=== PATIENT | female | born 1960 | race Caucasian/White ===

== ENCOUNTER 2019-11-07 09:42 | Emergency (ER) | payer OTHER, SELFPAY ==
--- NOTE | ~2019-11-07 | XR_ITS ---
XR wrist RT min 3V, XR wrist LT min 3V 11/07/2019 10:24 (accession [id number]), 11/07/2019 10:23 (accession [id number]) Indication: Status post fall. Bilateral wrist pain. Procedure: 4 views each wrist Comparison: No prior studies for comparison. Findings: No fracture, subluxation or dislocation. No erosive changes. Mild degenerative changes of t he right triscaphe joint. No focal soft tissue abnormality. Impression: 1: No acute fracture. Reviewed, dictated and finalized at location A. Impression: 1: No acute fracture. Impression: 1: No acute fracture.
--- NOTE | 2019-11-07 09:52 | ED.GENADULT ---
HPI - General Adult General Chief complaint: Extremity Injury, Upper Stated complaint: wrist injury Time Seen by Provider: 11/07/19 10:01 Source: patient Mode of arrival: ambulatory Limitations: no limitations History of Present Illness HPI narrative: 59-year-old female patient presents to the [facility] with complaints of bilateral wrist pain. Patient states that she was playing with a ball with her children about a week ago and states that she tripped and fell forward using both of her hands to catch her fall. Patient states that she landed onto concrete. Denies any loss of consciousness or hitting her head. Patient states that they were swollen and bruised however the bruising has gone down as well as the swelling but continues to have some pain on both sides of the wrist more so on the left than the right. Patient states that the pain on the left does radiate up to the wrist area as well on the right side. Patient denies taking anything for the pain. Patient denies any numbness or tingling. Related Data Home Medications Medication Instructions Recorded Confirmed No Home Medications 11/07/19 11/07/19 Allergies Allergy/AdvReac Type Severity Reaction Status Date / Time No Known Allergies Allergy Verified 11/07/19 10:10 Review of Systems Review of Systems: Narrative: CONSTITUTIONAL: Denies fever, chills, or sweats. EYES: Denies visual changes, redness, or discharge. ENT: Denies rhinorrhea, congestion, sore throat, or otalgia. CARDIOVASCULAR: Denies chest pain, palpitations, or edema. RESPIRATORY: Denies cough or dyspnea. GASTROINTESTINAL: Denies abdominal pain, nausea, vomiting, or diarrhea. GENITOURINARY: Denies dysuria or hematuria. SKIN: Denies rash or itching. MUSCULOSKELETAL: Denies back pain, joint pain, or myalgia. Positive bilateral wrist pain x1 week NEUROLOGIC: Denies headache, numbness, or weakness. PSYCHIATRIC: Denies anxiety or depression. PMFSH Comments At the time of my signature I agree with nursing past medical history, surgical, social, and family history. There is no relevant family history pertinent to the presenting complaint. Exam Narrative: Exam Narrative: GENERAL: Well-appearing, well-nourished, and in no acute distress. HEAD: Normocephalic, atraumatic. EYES: PERRLA and EOMI. ENT: Nares clear, no rhinorrhea or epistaxis. Mucous membranes moist. NECK: Supple. No lymphadenopathy CHEST: Clear to auscultation. No respiratory distress. HEART: Regular rate and rhythm. No murmur heard. Normal peripheral pulses. ABDOMEN: Soft, nontender, nondistended, normal active bowel sounds. EXTREMITIES: The R and L wrist is without obvious asymmetry or deformity. No surface trauma, open wounds, swelling, or obvious deformity. No overlying erythema or warmth. No bony crepitus or focal area of TTP. No scaphoid fullness or tenderness to direct palpation or axial load. Normal flex/extension, ulnar/radial deviation. Motor/sensory function of ulnar, radial, median nerves intact. Ulnar and radial pulses intact. Negaitve Phalen's/Tinel's sign. Positive Michele test to bilateral wrist more so on the left. SKIN: Warm, dry, no rash. NEURO: No focal deficits. Alert and oriented x3. Course Reevaluation(s) Reevaluation #1: Reevaluated patient after her x-ray had resulted. Discussed with her that the x-rays did not show any fractures on either wrist. Patient was asking about the views because her son is an orthopedic doctor and was requesting views of the scaphoid however I was informed by the x-ray tech that the scaphoid was involved in the 4 view films of both wrists. There is no abnormalities or fractures noted at this time. Discussed with her this most likely is possibly a strain of the tendon in that wrist. Discussed with her that we will go ahead and wrap both wrist with an Shaji wrap to help with the pain she can take Tylenol and ibuprofen as needed. Discussed with her we will go ahead and make her a disc that she
[2019-11-07 09:58] VITALS: BP 130/59; PULSE 71; RESP 16; TEMP 37.2; O2SAT 99
--- NOTE | 2019-11-07 10:58 | PC.NURSE ---
Shaji wrap removed from left wrist at pts request states it was making her left wrist throb and she does ot feel comfortable with it on.
--- NOTE | 2019-11-07 11:18 | PC.NURSE ---
Pts son is an orthopedic surgeon and requested to see films, pt took pictures of films and sent to her son. Per pt he agreed no fracture and requested a thumb spica splint. Pt chose not to have splint applied due to the fact the javier wrap was causing her increased pain and throbbing to area. Pt states she is going to follow up with a hands surgeon at [facility] tomorrow.
== END 2019-11-07 11:21 | disposition home or self-care (01) ==
PROVIDERS: Emergency Provider Nurse Practitioner Family; PCP Family Medicine Adolescent Medicine
DX: M77.9 Enthesopathy, unspecified (principal)
CPT/HCPCS: 73110; 99204; G0463

== ENCOUNTER → 2021-05-31 02:56 | Outpatient (CLI) | payer OTHER, SELFPAY ==
[2021-05-31 19:47] LABS: SARS-CoV-2 RNA PCR Positive
== END ==
PROVIDERS: PCP Family Medicine Adolescent Medicine; Visit Provider Physician Assistant
DX: U07.1 COVID-19 (principal)
CPT/HCPCS: C9803; U0003; U0005

== ENCOUNTER 2023-10-07 10:52 | Outpatient (CLI) | payer OTHER, SELFPAY ==
[2023-10-07 11:34] LABS: Hematocrit 41.8 % (37.0-47.0); Hemoglobin 13.6 g/dL (12.0-15.0); Mean Corpuscular HGB Conc 32.5 g/dl (32-36); Mean Corpuscular Hemoglobin 30.2 pg (26-34); Mean Corpuscular Volume 92.7 fl (80-100); Mean Platelet Volume 10.5 fl (7.4-10.4); Platelet Count Result 228 k/mm3 (150-375); Red Blood Count 4.51 M/mm3 (4.2-5.4); Red Cell Distribution Width 12.7 % (11.5-14.5); White Blood Count 6.6 K/mm3 (4.5-10.0)
[2023-10-07 14:24] LABS: Alanine Aminotransferase 19 U/L (6-35); Alkaline Phosphatase 69 U/L (38-126); Anion Gap 8 mmol/L (4-12); Aspartate Amino Transferase 32 U/L (14-36); Bilirubin,Total 1.1 mg/dL (0.2-1.3); Blood Urea Nitrogen 12 mg/dL (7-17); Calcium 9.9 mg/dL (8.4-10.2); Carbon Dioxide 24 mmol/L (22-30); Chloride 101 mmol/L (98-107); Cholesterol 239 mg/dL (0-200); Estimated Glomerular Filt Rate > 60; Glucose 93 mg/dL (65-110); Potassium 4.4 mmol/L (3.4-5.0); Sodium 133 mmol/L (137-145); Triglycerides 60 mg/dL (<150)
[2023-10-07 14:32] LABS: LDL Cholesterol Direct 99 mg/dL
[2023-10-07 14:49] LABS: HDL Direct 117 mg/dL
== END 2023-10-07 10:53 | disposition home or self-care (01) ==
PROVIDERS: PCP Family Medicine Adolescent Medicine; Visit Provider Family Medicine Adolescent Medicine
DX: Z00.00 Encounter for general adult medical examination without abnormal findings (principal); Z13.220 Encounter for screening for lipoid disorders
CPT/HCPCS: 36415; 80053; 80061; 85027